=== PATIENT | male | born 1970 | race Caucasian/White ===

== ENCOUNTER → 2024-04-22 10:16 | Outpatient (REF) | payer BC, SELFPAY | LOC: HWRAD 10:16 | PROVIDERS: ATTENDING PHYSICIAN Family Medicine | DX: R55 Syncope and collapse (principal); M25.522 Pain in left elbow | CPT/HCPCS: 70450; 73080; 73502 ==

== ENCOUNTER → 2024-05-23 13:58 | Outpatient (REF) | payer BC, SELFPAY | LOC: HWRCS 13:58 | PROVIDERS: ATTENDING PHYSICIAN Internal Medicine Cardiovascular Disease; FAMILY PHYSICIAN Family Medicine | DX: R55 Syncope and collapse (principal) | CPT/HCPCS: 93306 ==